=== PATIENT | female | born 1980 | race Caucasian/White ===

== ENCOUNTER 2017-03-30 19:35 | Emergency (ER) | payer BC ==
[2017-03-30 19:48] VITALS: BP 127/91
--- NOTE | 2017-03-30 20:18 | UC ---
Throat Pain/Nasal Stefan HPI - HPI Summary HPI Summary: 36 yo female with sinus type symptoms x 1 week no f/c sinus pressure post nasal drip ears full upper teeth and gum sensitive non productive cough now with mildy pruritic rash x 1 day - History of Current Complaint Chief Complaint: UCRespiratory Stated Complaint: SINUS PRESSURE,RASH Time Seen by Provider: 03/30/17 19:52 Hx Obtained From: Patient Hx Last Menstrual Period: Mirena IUD Onset/Duration: Gradual Onset, Lasting Days Severity: Moderate Pain Intensity: 4 Pain Scale Used: 0-10 Numeric Cough: Nonproductive Associated Signs & Symptoms: Positive: Sinus Discomfort, Nasal Discharge - Epiglottits Risk Factors Epiglottis Risk Factors: Negative - Allergies/Home Medications Allergies/Adverse Reactions: Allergies Allergy/AdvReac Type Severity Reaction Status Date / Time Gluten Meal AdvReac "Migraines, Verified 03/30/17 19:44 Nausea, Neuropathic Pain, Fatigue" Home Medications: Home Medications Levonorgestrel (Iud) [Mirena IUD] 20 mcg IU ONCE 03/30/17 [History Confirmed 08/15] Levothyroxine TAB* [Synthroid TAB*] 50 mcg PO DAILY 03/30/17 [History Confirmed 03/30/17] Phenylephrine-Chlorpheniramine [Fabiola-Morley Plus Cold &] 2 tab PO Q4H PRN 03/30 [History Confirmed 03/30/17] [id number] [Nyquil Severe Cold/Flu 5-6.25-10-325 mg/15Ml] 30 ml PO Q6H PRN 03/30/17 [History Confirmed 03/30/17] PMH/Surg Hx/FS Hx/Imm Hx Previously Healthy: Yes - Surgical History Surgical History: None - Family History Known Family History: Positive: Hypertension, Diabetes - Social History Alcohol Use: Occasionally Substance Use Type: None Smoking Status (MU): Never Smoked Tobacco - Immunization History Most Recent Influenza Vaccination: Not the Season Review of Systems Constitutional: Fatigue Skin: Rash Eyes: Negative ENT: Dental Pain, Ear Ache, Nasal Discharge, Sinus Congestion, Sinus Pain/ Tenderness Respiratory: Cough Cardiovascular: Negative Gastrointestinal: Negative Genitourinary: Negative Motor: Negative Neurovascular: Negative Musculoskeletal: Negative Neurological: Negative Psychological: Negative Is Patient Immunocompromised?: No All Other Systems Reviewed And Are Negative: Yes Physical Exam Triage Information Reviewed: Yes Appearance: Well-Appearing, No Pain Distress, Well-Nourished Vital Signs: Initial Vital Signs Temp 99.5 F 03/30/17 19:39 Pulse 70 03/30/17 19:39 Resp 16 03/30/17 19:39 BP 127/91 03/30/17 19:39 Pulse Ox 98 03/30/17 19:39 Vital Signs Reviewed: Yes Eyes: Positive: Conjunctiva Clear ENT: Positive: Hearing grossly normal, TMs normal. Negative: Nasal congestion, Nasal drainage, Tonsillar exudate, Trismus, Muffled/hoarse voice Dental Exam: Normal Neck: Positive: Nontender, No Lymphadenopathy Respiratory: Positive: Lungs clear, Normal breath sounds, No respiratory distress, No accessory muscle use Cardiovascular: Positive: RRR, No Murmur Musculoskeletal: Positive: ROM Intact, No Edema Neurological: Positive: Alert, Muscle Tone Normal Psychological Exam: Normal Skin: Positive: rashes - c/w folliculitis Throat Pain/Nasal Course/Dx - Differential Dx/Diagnosis Provider Diagnoses: acute sinusitis. rash-? folliculitis Discharge - Discharge Plan Condition: Stable Disposition: HOME Prescriptions: Amoxicillin PO (*) [Amoxicillin 875 MG (*)] 875 mg PO BID #20 tab Fluticasone NASAL SPRAY 50MCG* [Flonase NASAL SPRAY 50MCG*] 2 spray BOTH NARES DAILY #1 btl Patient Education Materials: Sinusitis (ED), Folliculitis (ED) Additional Instructions: recheck in 3-4 days if not better
== END 2017-03-30 20:14 | disposition home or self-care (01) ==
LOC: UCCORT 19:35
DX: J01.90 Acute sinusitis, unspecified (principal); R21 Rash and other nonspecific skin eruption; Z91.02 Food additives allergy status
CPT/HCPCS: 99202; G0463